=== PATIENT | female | born 1925 | race Caucasian/White ===

== ENCOUNTER 2017-06-09 12:59 | Inpatient (IN) | payer MEDICARE | END 2017-06-11 18:30 | disposition short-term general hospital (02) | DRG 392 | DX: K57.20 Diverticulitis of large intestine with perforation and abscess without bleeding (principal); K56.60 Unspecified intestinal obstruction; N39.0 Urinary tract infection, site not specified; E87.1 Hypo-osmolality and hyponatremia; I48.91 Unspecified atrial fibrillation; E11.9 Type 2 diabetes mellitus without complications; I10 Essential (primary) hypertension; B96.20 Unspecified Escherichia coli [E. coli] as the cause of diseases classified elsewhere; E03.9 Hypothyroidism, unspecified; I83.90 Asymptomatic varicose veins of unspecified lower extremity; E55.9 Vitamin D deficiency, unspecified; I87.2 Venous insufficiency (chronic) (peripheral); E87.6 Hypokalemia; Z96.653 Presence of artificial knee joint, bilateral ==